=== PATIENT | male | born 1960 | race Caucasian/White ===

== ENCOUNTER → 2021-10-02 | Outpatient (CLI) | payer OTHER ==
--- NOTE | 2021-10-02 17:18 | XRAY Report ---
PROCEDURE: Knee 3 View RT INDICATIONS: R KNEE PX TECHNIQUE: 3 views of the right knee(s) were acquired. COMPARISON: None. FINDINGS: Bones: No fractures or dislocations. 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 No suspicious bony lesions. Soft tissues: There is a small suprapatellar joint effusion. No suspicious soft tissue calcification s. IMPRESSION: No right knee fracture or dislocation. Small suprapatellar joint effusion. Mild to moder ate tricompartmental osteoarthritis more prominent in medial femoral tibial compartment. Reviewed by: Leroy Chung MD on 10/02/2021 5:17 PM PDT Approved by: Leroy Chung MD on 10/02/2021 5:17 PM PDT Station ID: [id number]
== END ==
LOC: DI.N 08:00
PROVIDERS: ATTEND Physician Assistant Medical
DX: M17.11 Unilateral primary osteoarthritis, right knee (principal); M25.461 Effusion, right knee